=== PATIENT | male | born 1995 | race Caucasian/White ===

== ENCOUNTER → 2016-10-02 | Outpatient (CLI) | payer BC, OTHER ==
--- NOTE | 2016-10-02 15:18 | DIAGNOSTIC IMAGING REPORT ---
RIGHT ELBOW MIN 3 VIEWS CLINICAL HISTORY: Right elbow pain COMPARISON: None. DISCUSSION: No fractures or dislocations are visualized. The fat pads are not displaced. There is posterior soft tissue edema. IMPRESSION: Soft tissue edema. No fractures identified. Electronically signed by: Vikash Howell M.D. 10/02/2016 3:16 PM Dictated Date/Time: 10/02/2016 3:15 PM
== END | disposition home or self-care (01) ==
LOC: C.RDSM 13:43
PROVIDERS: ATTEND Family Medicine
DX: M25.521 Pain in right elbow (principal)

== ENCOUNTER → 2017-03-30 | Outpatient (CLI) | payer BC, OTHER ==
--- NOTE | 2017-03-30 11:48 | DIAGNOSTIC IMAGING REPORT ---
L KNEE 4 OR MORE CLINICAL HISTORY: LEFT KNEE PAIN COMPARISON STUDY: None. FINDINGS: No fracture or dislocation. Soft tissues are within normal limits. No significant knee effusion. Cartilage spaces are maintained. No radiopaque foreign bodies. IMPRESSION: Unremarkable left knee by conventional radiographic technique. Electronically signed by: Jose Francisco Peterson M.D. 03/30/2017 11:47 AM Dictated Date/Time: 03/30/2017 11:46 AM
== END | disposition home or self-care (01) ==
LOC: C.RDSM 12:55
PROVIDERS: ATTEND Family Medicine
DX: M25.562 Pain in left knee (principal)